=== PATIENT | female | born 1935 | race Caucasian/White ===

== ENCOUNTER 2024-03-12 10:34 | Emergency (ER) | payer MEDICARE, OTHER, SELFPAY ==
--- NOTE | 2024-03-12 10:40 | XRR_ITS ---
PROCEDURE INFORMATION: Exam: XR Chest Exam date and time: 03/12/2024 11:05 AM Age: 88 years old Clinical indication: Angina pectoris; Patient HX: Chest pain; Lt arm pain; SOB; Fatigue TECHNIQUE: Imaging protocol: Radiologic exam of the chest. Views: 1 view. COMPARISON: No relevant prior studies available. FINDINGS: Lungs: The lungs are somewhat hyperinflated, likely representing COPD. No evidence of focal consolidation to suggest pneumonia. Pleural spaces: Unremarkable. No pleural effusion. No pneumothorax. Heart/Mediastinum: Mildly enlarged heart. Bones/joints: Degenerative changes of the spine seen. XR/XR chest 1V portable [id number] IMPRESSION: No evidence of focal consolidation. COPD changes.
--- NOTE | 2024-03-12 10:40 | ECG_ITS ---
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 Measurements Intervals [place] Rate: 57 P: 76 CA: 212 QRS: 34 QRSD: 104 T: 70 QT: 451 QTc: 440 Interpretive Statements SINUS BRADYCARDIA WITH FIRST DEGREE AV BLOCK No previous ECG available for comparison Electronically Signed On 03-12-2024 20:50:50 CDT by Pretty Trent M.D. [id number]
[2024-03-12 10:42] VITALS: BP 190/99; PULSE 59; RESP 16; TEMP 36.7; O2SAT 96
--- NOTE | 2024-03-12 10:42 | ED_ITS ---
HPI - Extremity Problem 2 General: Chief complaint: Extremity Injury, Upper Stated complaint: LEFT ARM PAIN Time Seen by Provider: 03/12/24 10:35 History of Present Illness: 88-year-old female with a history of hyp ertension and peripheral vascular disease who presents the emergency room with left arm pain that started earlier this morning, probably a couple hours ago but has since resolved. Said pain was down her shoulder all the way down into her forearm. Was concerned this could be coronary artery disease. She does have peripheral vascular disease and has had stents in her groin she says. She had a cardiac cath a couple of years ago and states she had some plaques but nothing that needed intervened on at the time. No cough. No shortness of breath. No altered mental status. No focal motor deficits. No nausea or vomiting Review of Systems 2 Narrative: Constitutional symptoms: Negative except as documented in HPI. Skin symptoms: Negative except as documented in HPI. Eye symptoms: Negative except as documented in HPI. ENMT symptoms: Negative except as documented in HPI. Respiratory symptoms: Negative except as documented in HPI. Cardiovascular symptoms: Negative except as documented in HPI. Gastrointestinal symptoms: Negative except as documented in HPI. Genitourinary symptoms: Negative except as documented in HPI. Musculoskeletal symptoms: Negative except as documented in HPI. Neurologic symptoms: Negative except as documented in HPI. Psychiatric symptoms: Negative except as documented in HPI. Endocrine symptoms: Negative except as documented in HPI. Physical Exam 2 Narrative: EXAM NARRATIVE: General: Alert, no acute distress. Skin: Warm, dry. Head: Normocephalic, atraumatic. Neck: Supple, trachea midline. Eye: Extraocular movements are intact. Ears, nose, mouth and throat: mucosa moist. Cardiovascular: Regular, Normal peripheral perfusion. Respiratory: Lungs are clear to auscultation, respirations are non-labored, breath sounds are equal, Symmetrical chest wall expansion. Gastrointestinal: Soft, Nontender, Non distended, Normal bowel sounds. Musculoskeletal: Normal ROM, no deformity. Neurological: Alert and oriented, No focal neurological deficit observed. Psychiatric: Cooperative, appropriate mood & affect. Course 2 Vital Signs: Vital signs: Vital Signs Temperature 98.1 F 03/12/24 10:42 Pulse Rate 59 L 03/12/24 10:42 Respiratory Rate 16 03/12/24 10:42 Blood Pressure 190/99 03/12/24 10:42 Pulse Oximetry 96 03/12/24 10:42 Oxygen Delivery Me thod Room Air 03/12/24 10:42 MDM - Extremity (Nontraumatic) Medical Decision Making Differential diagnosis for patient with arm pain with equivalent to chest pain includes but is not limited to and based on the above HPI, review of systems and physical exam: Primary concern would be that she has atypical presentation of chest pain and has an acute coronary event. Workup: Lab work, chest X-ray and EKG ordered to evaluate, rule in and rule out above pathologies. Lab Review: Laboratory results were reviewed and interpreted by myself the emergency room physician. Lab work was fairly unremarkable. Initial troponin was 19. White count was 6. Hemoglobin was 10. BUN and creatinine were 13 and 0.8. EKG: Time 10:52 AM rate 57. Sinus bradycardia, No ST-T changes, no ectopy, normal DC & QRS intervals, This was reviewed and interpreted by myself the ER physician. Chest x-ray: No acute process. No infiltrate. No pneumothorax. cardiomegaly. This was reviewed and interpreted by myself the ER physician. I reviewed the patient's medical record. No previous records at this facility. Reexamination: At 1140 nursing called me to the patient's room. Patient's family had called out and said she had suddenly become unresponsive. I examined the patient and she had a left gaze. She would not move her right arm. Initially she would move her left arm slightly to command. She would try to speak with but is very dysarthric/aphasic. Code stroke was called. Patient was taken to CT. I evaluated the initial scan there was no blood. There was a meningioma in the frontal lobe. Family reports this is old. CTA was performed. CTA of the head and neck At 1228 V rad called with report. Report was that she had new distal M1 obstruction that was complete into the M2 branches. Some loss of wise-white matter in the left temporal and insular regions. Consultation: I called Dr. Torres with neurology immediately. He evaluated the patient. Recommended blood pressure control but not too aggressive. Systolic between 160 and 180 with a MAP of 90-100. I have ordered a Cardene drip. The patient has been bradycardic. NIH Stroke Scale/Score (NIHSS) from [email or web address] on 03/12/2024 All calculations should be rechecked by clinician prior to use RESULT SUMMARY: 17 points NIH Stroke Scale INPUTS: 1A: Level of consciousness ?> 2 = Requires repeated stimulation to arouse 1B: Ask month and age ?> 2 = Aphasic 1C: 'Blink eyes' & 'squeeze hands' ?> 2 = Performs 0 tasks 2: Horizontal extraocular movements ?> 2 = Forced gaze palsy: cannot be overcome 3: Visual garcia ?> 0 = No visual loss 4: Facial palsy ?> 1 = Minor paralysis (flat nasolabial fold, smile asymmetry) 5A: Left arm motor drift ?> 0 = No drift for 10 seconds 5B: Right arm motor drift ?> 4 = No movement 6A: Left leg motor drift ?> 0 = No drift for 5 seconds 6B: Right leg motor drift ?> 0 = No drift for 5 seconds 7: Limb Ataxia ?> 0 = No ataxia 8: Sensation ?> 0 = Normal; no sensory loss 9: Language/aphasia ?> 2 = Severe aphasia: fragmentary expression, inference needed, cannot identify materials 10: Dysarthria ?> 2 = Severe dysarthria: unintelligible slurring or out of proportion to dysphasia 11: Extinction/inattention ?> 0 = No abnormality 12:30 PM: Blood pressure was brought down to around 185 systolic. Tenecteplase was given weight-based. Lab Data 03/12/24 11:34 03/12/24 11:34 Radiology Impressions Chest X-Ray 03/12/24 10:40 IMPRESSION: No evidence of focal consolidation. COPD changes. Head CT 03/12/24 11:42 IMPRESSION: 1. No acute intracranial abnormality. 2. Calcified dural-based masses in the left frontal parafalcine and left lateral temporoparietal regions, likely representing meningiomas. Further evaluation with contrast enhanced brain MRI recommended. ASSESSMENT: ASPECTS ([place] Stroke Program Early CT Score) is 10. Head/Neck CTA 03/12/24 11:42 IMPRESSION: 1. Near-complete occlusion of the distal M1 and proximal M2 branches of the left middle cerebral artery. 2. Loss of wise-white matter differentiation in the left temporal lobe and insular regions, concerning for infarct. IMPRESSION: 1. No occlusion. 2. Moderate to severe stenosis at the origin of the right vertebral artery, which may be accentuated by motion artifact. 3. Ectatic ascending aorta. REFERENCES: NASCET CRITERIA. The degree of stenosis in the cervical segment of the internal carotid artery is based on NASCET criteria. Normal is no stenosis. Mild is less than 50% stenosis. Moderate is 50-69% stenosis. Severe is 70% to 99% stenosis. Total occlusion is no detectable patent lumen. ADDENDUM: 03/12/24 0416 THIS REPORT CONTAINS FINDINGS THAT MAY BE CRITICAL TO PATIENT CARE. The findings were verbally communicated via telephone conference with JESSICA NGUYEN at 12:24 PM CDT on 03/12/2024. The findings were acknowledged and understood. Laboratory Results WBC 6.08 10^3/uL (3.29-11.43) 03/12/24 11:34 RBC 3.40 10^6/uL (3.85-5.65) L 03/12/24 11:34 Hgb 10.10 g/dL (11.27-16.99) L 03/12/24 11:34 Hct 30.1 % (36-47) L 03/12/24 11:34 MCV 88.5 fl (85-98) 03/12/24 11:34 MCH 29.7 pg (27-33) 03/12/24 11:34 MCHC 33.6 g/dL (30-55) 03/12/24 11:34 RDW 12.4 % (12.1-15.1) 03/12/24 11:34 Plt Count 228 10^3/cmm (157-399) 03/12/24 11:34 MPV 9.3 fL (7.4-10.4) 03/12/24 11:34 Neut % (Auto) 63.7 % 03/12/24 11:34 Lymph % (Auto) 23.5 % 03/12/24 11:34 [place] % (Auto) 9.2 % 03/12/24 11:34 Eos % (Auto) 2.6 % 03/12/24 11:34 Baso % (Auto) 0.8 % 03/12/24 11:34 Neut # (Auto) 3.87 10^3/uL (1.8-7.7) 03/12/24 11:34 Lymph # (Auto) 1.4 10^3/uL (0.8-4.8) 03/12/24 11:34 [place] # (Auto) 0.6 10^3/uL (0.2-0.9) 03/12/24 11:34 Eos # (Auto) 0.2 10^3/uL (0.0-0.8) 03/12/24 11:34 Baso # (Auto) 0.1 10^3/uL (0.0-0.1) 03/12/24 11:34 Nucleated RBC % (auto) 0 % 03/12/24 11:34 Nucleated RBCs # 0.0 /100WBC 03/12/24 11:34 Sodium 131 mmol/L (136-145) L 03/12/24 11:34 Potassium 3.8 mmol/L (3.5-5.1) 03/12/24 11:34 Chloride 92 mmol/L (98-107) L 03/12/24 11:34 Carbon Dioxide 31 mmol/L (22-29) H 03/12/24 11:34 Anion Gap 11.8 (5-19) 03/12/24 11:34 BUN 13 mg/dL (8-23) 03/12/24 11:34 Creatinine 0.8 mg/dL (0.5-0.9) 03/12/24 11:34 GFR Calculation Not Reportable 03/12/24 11:34 Glucose 91 mg/dL (65-115) 03/12/24 11:34 POC Glucose 88 mg/dL (70-110) 03/12/24 11:58 Calculated Osmolality 272 mOsm/kg (285-295) L 03/12/24 11:34 Calcium 8.9 mg/dL (8.5-10.5) 03/12/24 11:34 Troponin T Baseline 14 ng/L (0-10) H 03/12/24 11:34 All radiology interpretation(s) finalized by discharge Other Data Assessment and plan: Acute M1 distribution cerebrovascular event. Right hemiplegia Right-sided neglect. Left-sided gaze. -Patient was initially brought to the emergency room with left arm pain with concern for a cardiac event. Recently taken off of her Plavix. Has history of peripheral vascular disease. -Patient is being transferred to tertiary care center for possible thrombectomy. -Tenecteplase was given. -Cardene drip for blood pressure. -Neurology consultation in the emergency room. See above. -Patient is being transferred to [facility]. Excepted by neurologist Dr. Bloom and by emergency room physician Dr. Gamboa -Patient is being transferred by air ambulance as this is very time sensitive and life-threatening - Discussed findings and plan with family. Answered any questions. - All laboratory values were reviewed and interpreted personally by myself, the ER physician - All imaging was reviewed and interpreted personally by myself, the ER physician. - Evaluation and treatment of this problem were appropriate in the emergency setting -I spent a total of >75 minutes of critical care time managing the patient, independent of any other practitioner. -The time involved in the performance of separately reportable procedures was not counted towards critical care time. Discharge Plan Discharge Patient Disposition: Xfer Short-Term Hosp Clinical Impression: Cerebrovascular event, Hemiplegia affecting right dominant side, Right-sided visual neglect Condition: Critical Coding Level of Care Code ED Supervisor Partial Denture Department for Anastasiya Graves
[2024-03-12 11:40] LABS: Basophils # 0.1 10^3/uL (0.0-0.1); Basophils % 0.8 %; Eosinophils # 0.2 10^3/uL (0.0-0.8); Eosinophils % 2.6 %; Hematocrit 30.1 % (36-47); Lymphocytes # 1.4 10^3/uL (0.8-4.8); Lymphocytes % 23.5 %; Mean Corpuscular HGB Conc 33.6 g/dL (30-55); Mean Corpuscular Hemoglobin 29.7 pg (27-33); Mean Corpuscular Volume 88.5 fl (85-98); Mean Platelet Volume 9.3 fL (7.4-10.4); Monocytes # 0.6 10^3/uL (0.2-0.9); Monocytes % 9.2 %; Neutrophils # 3.87 10^3/uL (1.8-7.7); Neutrophils % 63.7 %; Nucleated Red Blood Cells % 0 %; Platelet Count 228 10^3/cmm (157-399); Red Cell Distribution Width 12.4 % (12.1-15.1); White Blood Count 6.08 10^3/uL (3.29-11.43)
--- NOTE | 2024-03-12 11:42 | CTR_ITS ---
PROCEDURE INFORMATION: Exam: CTA Head With Contrast, Arteriography Exam date and time: 03/12/2024 11:50 AM Age: 88 years old Clinical indication: Cognitive deficit; Altered mental status; Additional info: Stroke TECHNIQUE: Imaging protocol: Computed tomographic angiography of the head with contrast. Exam focused on the arteries. 3D rendering (Not supervised by radiologist): MIP and/or 3D reconstructed images were created by the technologist. Radiation optimization: All CT scans at this facility use at least one of these dose optimization techniques: automated exposure control; mA and/or kV adjustment per patient size (includes targeted exams where dose is matched to clinical indication); or iterative reconstruction. Contrast material: OMNI 350; Contrast volume: 100 ml; Contrast route: INTRAVENOUS (IV); COMPARISON: CT head wo con* [id number] 03/12/2024 11:44 AM RADIATION DOSE METRICS: Total DLP (mGy-cm): 435.02 FINDINGS: ANTERIOR CIRCULATION: Right internal carotid artery: Intracranial segment is patent with no significant stenosis. No aneurysm. Right middle cerebral artery: No occlusion or significant stenosis. No aneurysm. Right anterior cerebral artery: No occlusion or significant stenosis. No aneurysm. Left internal carotid artery: Intracranial segment is patent with no significant stenosis. No aneurysm. Left middle cerebral artery: There is filling defect within the distal M1 segment and proximal M2 branches of the left middle cerebral artery, resulting in near complete occlusion. No aneurysm. Left anterior cerebral artery: No occlusion or significant stenosis. No aneurysm. POSTERIOR CIRCULATION: Right vertebral artery: No occlusion or significant stenosis. No aneurysm. Left vertebral artery: No occlusion or significant stenosis. No aneurysm. Basilar artery: No occlusion or significant stenosis. No aneurysm. Right posterior cerebral artery: Persistent circulation through the patent right posterior communicating artery. No occlusion or significant stenosis. No aneurysm. Left posterior cerebral artery: Persistent circulation through the patent left posterior communicating artery. No occlusion or significant stenosis. No aneurysm. Brain: There is loss of wise-white matter differentiation in the left temporal lobe and insular regions. Well-defined, calcified, dural-based lesions in the left frontal parasagittal region and left lateral frontotemporal region, likely representing meningiomas. No hemorrhage or midline shift. There are foci of decreased attenuation in the periventricular and subcortical white matter, likely representing chronic small vessel ischemic changes. Mild cerebral volume loss is present. No intra-axial or extra-axial fluid collection seen. Cerebral ventricles: No ventriculomegaly. Mastoid air cells: Visualized mastoid air cells are well aerated. Paranasal sinuses: Visualized sinuses are unremarkable. No fluid levels. Bones/joints: Unremarkable. No acute fracture. Soft tissues: Unremarkable. PROCEDURE INFORMATION: Exam: CTA Neck With Contrast Exam date and time: 03/12/2024 11:50 AM Age: 88 years old Clinical indication: Cognitive deficit; Altered mental status; Additional info: Stroke TECHNIQUE: Imaging protocol: Computed tomographic angiography of the neck with contrast. Exam focused on the cervical segments of the vasculature. 3D rendering (Not supervised by radiologist): MIP and/or 3D reconstructed images were created by the technologist. Radiation optimization: All CT scans at this facility use at least one of these dose optimization techniques: automated exposure control; mA and/or kV adjustment per patient size (includes targeted exams where dose is matched to clinical indication); or iterative reconstruction. Contrast material: OMNI 350; Contrast volume: 100 ml; Contrast route: INTRAVENOUS (IV); COMPARISON: CT head wo con* [id number] 03/12/2024 11:44 AM RADIATION DOSE METRICS: Total DLP (mGy-cm): 435.02 FINDINGS: Right common carotid artery: No stenosis. No dissection or occlusion. Right internal carotid artery: No stenosis of the extracranial segment. No dissection or occlusion. Right external carotid artery: No occlusion or stenosis of the origin. Left common carotid artery: No stenosis. No dissection or occlusion. Left internal carotid artery: No stenosis of the extracranial segment. No dissection or occlusion. Left external carotid artery: No occlusion or stenosis of the origin. Right vertebral artery: There is moderate to severe stenosis at the origin of the right vertebral artery, which may be accentuated by motion artifact. No dissection or occlusion. Left vertebral artery: No stenosis. No dissection or occlusion. Aorta: Ectatic partially imaged ascending aorta measuring up to 4 cm in diameter. Soft tissues: Normal. No significant soft tissue swelling. Bones/joints: No acute fracture. Degenerative changes of the spine seen. CT/CT angio headneck* [id number] IMPRESSION: 1. Near-complete occlusion of the distal M1 and proximal M2 branches of the left middle cerebral artery. 2. Loss of wise-white matter differentiation in the left temporal lobe and insular regions, concerning for infarct. IMPRESSION: 1. No occlusion. 2. Moderate to severe stenosis at the origin of the right vertebral artery, which may be accentuated by motion artifact. 3. Ectatic ascending aorta. REFERENCES: NASCET CRITERIA. The degree of stenosis in the cervical segment of the internal carotid artery is based on NASCET criteria. Normal is no stenosis. Mild is less than 50% stenosis. Moderate is 50-69% stenosis. Severe is 70% to 99% stenosis. Total occlusion is no detectable patent lumen.
--- NOTE | 2024-03-12 11:42 | CTR_ITS ---
PROCEDURE INFORMATION: Exam: CT Head Without Contrast Exam date and time: 03/12/2024 11:44 AM Age: 88 years old Clinical indication: Stroke-like symptoms; Altered mental status/memory loss; Additional info: New onset stroke TECHNIQUE: Imaging protocol: Computed tomography of the head without contrast. Radiation optimization: All CT scans at this facility use at least one of these dose optimization techniques: automated exposure control; mA and/or kV adjustment per patient size (includes targeted exams where dose is matched to clinical indication); or iterative reconstruction. Other technique: STROKE PROTOCOL was implemented. COMPARISON: No relevant prior studies available. RADIATION DOSE METRICS: Total DLP (mGy-cm): 875.6 FINDINGS: Brain: In the left frontal parafalcine region there is an oval, calcified, dural-based mass measuring approximately 2.4 x 2.2 x 1.7 cm. Slight mass effect over the adjacent sulci noted. No significant surrounding edema identified. In the left lateral temporoparietal region, there is a dural-based calcified lesion measuring approximately 0.4 x 0.5 x 0.3 cm. No significant mass effect. No associated edema. No hemorrhage or midline shift. No acute, major vascular distribution infarction identified. There are foci of decreased attenuation in the periventricular and subcortical white matter, likely representing chronic small vessel ischemic changes. Mild cerebral volume loss is present. No intra-axial or extra-axial fluid collection seen. Cerebral ventricles: No ventriculomegaly. Paranasal sinuses: Visualized sinuses are unremarkable. No fluid levels. Mastoid air cells: Visualized mastoid air cells are well aerated. Bones/joints: Unremarkable. No acute fracture. Soft tissues: Unremarkable. CT/CT head wo con* [id number] IMPRESSION: 1. No acute intracranial abnormality. 2. Calcified dural-based masses in the left frontal parafalcine and left lateral temporoparietal regions, likely representing meningiomas. Further evaluation with contrast enhanced brain MRI recommended. ASSESSMENT: ASPECTS ([place] Stroke Program Early CT Score) is 10.
[2024-03-12] MEDS: iohexol 350 mg/mL 500 mL Btl (per mL) IV (11:50)
[2024-03-12 11:57] LABS: Anion Gap 11.8 (5-19); Blood Urea Nitrogen 13 mg/dL (8-23); Calcium 8.9 mg/dL (8.5-10.5); Carbon Dioxide 31 mmol/L (22-29); Chloride 92 mmol/L (98-107); Glucose 91 mg/dL (65-115); Osmolality Calculated 272 mOsm/kg (285-295); Potassium 3.8 mmol/L (3.5-5.1); Sodium 131 mmol/L (136-145); Troponin(5th) Baseline 14 ng/L (0-10)
[2024-03-12 12:11] VITALS: BP 193/81; PULSE 64; RESP 17; O2SAT 96
[2024-03-12 12:15] LABS: Glucose Point of Care 88 mg/dL (70-110)
[2024-03-12] MEDS: nicardipine 20 MG/200 ML PREMIX 50 MG IV (12:26)
[2024-03-12 12:30] VITALS: BP 201/90; PULSE 63; RESP 17; O2SAT 96
--- NOTE | 2024-03-12 12:34 | PC.PHAR ---
pt unable to verify medications-pts daughter brought in med list and states it should be up to date-the list brought in had estradiol 1mg takes one half tab (0.5mg) daily ext shows last filled 1mg daily filled 03/09/24 90d/s-pts list also had terazosin 2mg daily ext shows last filled 5mg capsule 5mg hs ext shows filled 02/18/24 90d/s-pts daughter states the pts plavix 75mg daily was dced about 2 months ago ext shows last filled 12/21/23 30d/s-pts daughter also states the pts amlodipine 5mg daily was dced about 2 weeks ext shows last filled 02/24/24 30d/s-pts daughter states the pt gets a vitamin b12 injection monthly ext doesnt show when last filled-pts daughter states the pt took am meds today but doesnt know which are am meds-
[2024-03-12] MEDS: tenecteplase 50mg Kit (STROKE) 19 MG IVP (12:38)
--- NOTE | 2024-03-12 12:45 | ECG_ITS ---
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 Measurements Intervals [place] Rate: 59 P: 65 AR: 200 QRS: 44 QRSD: 94 T: 70 QT: 468 QTc: 464 Interpretive Statements SINUS BRADYCARDIA Compared to ECG 03/12/2024 10:52:05 First degree AV block no longer present Electronically Signed On 03-12-2024 21:00:51 CDT by Pretty Trent M.D. [email or web address] [email or web address] hospital at gulfportAzulStarcleveland clinic ak[facility] general lodi hospitalThe Electrospin[employer]/store/[id number]
[2024-03-12] MEDS: sodium chloride 0.9% 1,000 ML 75 ML IV (12:48)
[2024-03-12 13:00] VITALS: BP 154/59; PULSE 60; RESP 16; O2SAT 95
[2024-03-12 13:04] LABS: INR 0.99 (0.8-1.2)
--- NOTE | 2024-03-12 13:13 | P.CONIM_ITS ---
Providers/Reason For Consult 2 Consulting Physician/Specialty*: Jadiel Torres MD neurology and epilepsy Reason for Consult*: Code stroke/acute care emergency department room #10 History of Present Illness History of Present Illness Tiesha James is a 88 year old female with a history of peripheral artery disease status post stent placements and labile hypertension treated with metoprolol amlodipine and as needed clonidine. According to the patient's daughter, on 02/28/2024 amlodipine (Norvasc) was discontinued secondary to patient experiencing low blood pressure and metoprolol was increased. On 03/09/2023 the patient's daughter contacted her mother. And according to the patient's daughter her mother was experiencing slurred speech. The patient's mother stated she had just woken up from sleep. The patient's daughter contacted the on-call nurse for the family physician and patient was scheduled to be evaluated by the family physician on 03/10/2024. According to the patient's daughter, the patient was evaluated by the nurse practitioner and the patient was scheduled for head CT and head MRI to evaluate the brain lesion suggestive of a meningioma since the patient was also reporting episodic dizziness and balance difficulty. On 03/12/2024 the patient was reported to experience left arm pain around 9 AM and the patient was brought to [facility] emergency room since [facility] was reported to be on diversion. The patient arrived at [facility] emergency room at 10:30 AM and reported improvement in her left arm pain. At approximately 11:35 AM on 03/12/2024 the daughter notified the patient's nurse that her mother experienced acute onset of decreased speech, altered mental status and deviation of her eyes to the left associated with right arm and right leg paralysis. Code stroke was initiated at 11:42 AM. Stat noncontrast head CT was obtained and revealed no acute findings. There was report of a calcified dural-based masses in the left frontal parafalcine and left lateral temporoparietal regions, likely representing meningiomas. and further evaluation with contrast enhanced brain MRI was recommended. Glucose 88. CT angiogram of the head and neck was obtained prior to my arrival and results were pending at the time of my neurological assessment. NIH score =17 secondary to patient unable to answer both questions, left gaze preference with inability of the patient to look to the right, right lower facial weakness, right arm and right leg paralysis, and inability to speak. Intravenous tenecteplase was ordered but the there was delay and the infusion secondary to patient experiencing elevated blood pressure of 193/81. Patient was started on intravenous nicardipine at 5 mg with improvement in her blood pressure within the appropriate ranges for intravenous tenecteplase. Consent for IV tenecteplase was obtained from the patient's daughter and risk versus benefits were discussed with the daughter who voiced understanding regarding intravenous tenecteplase. Intravenous tenecteplase 19 mg was given IV push at 12:38 AM. Nicardipine was discontinued and serial blood pressures were obtained every 5 minutes. Blood pressure was again elevated with systolic blood pressure 192 and therefore nicardipine drip was restarted at 2.5 mg. Repeat serial blood pressures were continued and 5 minutes later revealed elevated systolic blood pressure 192. Therefore nicardipine was restarted at 2.5 mg. Repeat serial blood pressure 5 minutes later still revealed elevated systolic blood pressure of 190s and therefore nicardipine drip was increased back to 5 mg. Repeat blood pressure revealed 163/66 therefore nicardipine drip was decreased back to 2.5 mg and repeat serial blood pressures every 5 minutes revealed blood pressures in the 155/66 range with heart rate of 61 with mean arterial blood pressure in the 90 to 92. The radiologist contacted the attending ER physician and reported the CT angiogram performed on 03/12/2024 revealed Near-complete occlusion of the distal M1 and proximal M2 branches of the left middle cerebral artery. Loss of wise-white matter differentiation in the left temporal lobe and insular regions, concerning for infarct. The ER physician contacted [facility] to transfer patient for evaluation for thrombectomy. The patient was also started on IV normal saline at 75 cc/hr and head of bed was elevated to 30 degrees to minimize any potential cerebral swelling. CBC and comprehensive metabolic panel revealed normal WBC, RBC 3.4. H&H 10 and 30 respectively. Sodium 131 with chloride of 92 and troponin level slightly elevated at 14. The other labs were unrevealing. The patient's daughter stated that the patient underwent 2D echocardiograms in the past but no recent 2D echocardiograms. The patient was med flighted to [facility]. Drug allergies: Celexa type reaction unknown Sulfonamide antibiotics type reaction unknown Valacyclovir type reaction unknown Current home medications: Metoprolol 50 mg p.o. twice daily Hydrochlorothiazide 25 mg p.o. daily Aspirin 81 mg p.o. daily Lorazepam 1 mg p.o. nightly Primidone 50 mg p.o. daily for essential tremor Terazosin 2 mg p.o. daily Estradiol 1 mg tablet 1/2 tablet p.o. daily Ibuprofen 600 mg p.o. twice daily Clonidine 0.1 mg as needed elevated blood pressure (systolic greater than 185 or diastolic greater than 105) Neurontin 300 mg p.o. twice daily for shingles Cetirizine 10 mg p.o. daily Vitamin D2 50,000 international units p.o. weekly Past medical history: Peripheral artery disease status post lower extremity stent placements Status post hysterectomy 1974 Gallbladder surgery 1999 Status post cataract surgery 2007 Brain lesion suggestive of meningioma Vertigo Past medications: Plavix (prescribed following peripheral artery disease stent placements) Norvasc Celexa Valacyclovir Sulfonamide antibiotic Habits: None Review of Systems 2 General: Reports: ROS unobtainable due to medical condition Medications/Allergies Home Medications Medication Instructions Recorded Confirmed Last Taken Type aspirin 81 mg tablet,delayed 81 mg PO DAILY 03/12/24 03/12/24 03/12/24 History release cetirizine 10 mg tablet 10 mg PO DAILY 03/12/24 03/12/24 Unknown History clonidine HCl 0.1 mg tablet 0.1 mg PO .FOR BP OVER 185 03/12/24 03/12/24 Unknown History cyanocobalamin (vitamin B-12) 1,000 mcg IM Q30D 03/12/24 03/12/24 2 Weeks Ago History 1,000 mcg/mL injection solution ~02/27/24 ergocalciferol (vitamin D2) 1,250 50,000 unit PO Q7D 03/12/24 03/12/24 Unknown History mcg (50,000 unit) capsule (Vitamin D2) estradiol 1 mg tablet 0.5 mg PO DAILY 03/12/24 03/12/24 Unknown History gabapentin 300 mg capsule 300 mg PO BID 03/12/24 03/12/24 Unknown History hydrochlorothiazide 25 mg tablet 25 mg PO QAM 03/12/24 03/12/24 Unknown History ibuprofen 600 mg tablet 600 mg PO BID PRN Pain 03/12/24 03/12/24 Unknown History lorazepam 1 mg tablet 1 mg PO BEDTIME 03/12/24 03/12/24 Unknown History metoprolol tartrate 50 mg tablet 50 mg PO BID 03/12/24 03/12/24 Unknown History primidone 50 mg tablet 50 mg PO DAILY 03/12/24 03/12/24 Unknown History terazosin 5 mg capsule 5 mg PO DAILY 03/12/24 03/12/24 Unknown History Allergies Allergy/AdvReac Type Severity Reaction Status Date / Time citalopram [From Celexa] Allergy Unknown Verified 03/12/24 12:26 Sulfa (Sulfonamide Allergy Unknown Verified 03/12/24 12:26 Antibiotics) valacyclovir Allergy Unknown Verified 03/12/24 12:26 Current Medications Generic Name Dose Route Start Last Admin Trade Name Freq PRN Reason Stop Dose Admin Nicardipine/Sodium Chloride 20 mg in 200 mls @ 0 mls/hr 03/12/24 12:30 03/12/24 12:51 Cardene IV 5 mg/hr .Q0M DANETTE 50 mls/hr Titration Protocol Per Protocol Sodium Chloride 1,000 mls @ 75 mls/hr 03/12/24 12:45 03/12/24 12:48 Sodium Chloride 0.9% IV 75 mls/hr .[id number] DANETTE Administration Vitals/I&O/Wt Last Vital Signs Temp 98.1 F 03/12/24 10:42 Pulse 59 L 03/12/24 10:42 Resp 16 03/12/24 10:42 BP 190/99 03/12/24 10:42 Pulse Ox 96 03/12/24 10:42 O2 Del Method Room Air 03/12/24 10:42 03/11/24 03/12/24 03/12/24 22:59 06:59 14:59 Intake Total 17.083 / 17.083 Balance 17.083 / 17.083 Weight last 48 hrs Weight 166 lb Physical Exam 2 Narrative: Blood pressure stable with MAP between 90 to 92 (recommended patient continue at higher MAP blood pressure secondary to left MCA thrombosis and stroke involving the left MCA distribution to assist with brain perfusion) The patient is awake but intermittently sleepy but arousable to verbal stimuli. Patient nonverbal. Patient has left gaze preference with right-sided paralysis. Pupils 4 mm reactive to light and accommodation. Visual garcia were difficult to assess secondary to patient's neurological condition and being nonverbal. The patient does follow commands. Head normocephalic. Neck supple. Cranial nerves II through XII revealed right lower facial weakness. Extraocular movements revealed left gaze preference with inability of the patient to look to the right. Motor testing right upper and right lower extremity paralysis. Patient moves the left arm and left leg to tactile stimuli. Deep tendon reflexes revealed extensor plantar response on the right. There was no clonus. Sensory examination was intact to touch. Throat clear. Lungs clear. Heart regular rhythm and rate at times with sinus bradycardia in the upper 50s. Abdomen benign. Extremities were negative for cyanosis or edema. Patient has history of lower extremity stent placements in the femoral region. Data 03/12/24 11:34 03/12/24 11:34 A&P Assessment and plan (1) Left acute arterial ischemic stroke, MCA (middle cerebral artery): Impression: 1. 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 angiogram of the head and neck 03/12/2024 secondary to Near- complete occlusion of the distal M1 and proximal M2 branches of the left middle cerebral artery. Loss of wise-white matter differentiation in the left temporal lobe and insular regions, concerning for infarct. 3. Abnormal noncontrast head CT 03/12/2024 secondary to calcified dural-based masses in the left frontal parafalcine and left lateral temporoparietal regions, likely representing meningiomas. Further evaluation with contrast enhanced brain MRI recommended. 4. Intravenous tenecteplase administered 03/12/2024 at 12:38 PM 5. History of peripheral artery disease status post stent placement in the lower extremities 6. Labile hypertension Plan: 1. Agree with transfer to [facility] to have patient evaluated for left MCA thrombectomy 2. Recommend repeat 2D echocardiogram to assess for embolic source for strokes 3. Follow NIH stroke protocol regarding lipid-lowering agents and antiplatelets versus anticoagulation (2) Thrombolytic therapy administered within 2 hours of onset of symptoms: Consult Attestations 2 Medical Necessity Statement: Patient evaluated by neurology for acute care/code stroke and intravenous tenecteplase 03/12/2024. Coding Level of Care Code 53450 Diagnoses Left acute arterial ischemic stroke, MCA (middle cerebral artery) I63.512 Thrombolytic therapy administered within 2 hours of onset of symptoms
[2024-03-12 13:30] VITALS: BP 158/68; PULSE 60; RESP 15; O2SAT 97
--- NOTE | 2024-03-12 13:38 | PC.NURSE ---
Stroke Alert when pt arrived to ED she was AO and talking, she was able to answer all assessment questions on her own. pts daughter alerted staff that mother was acting different after stating that her 'head felt numb', this RN and Marielena RN who was charge went to check on pt in room 9. pt was gazing to the left, unable to move right arm and leg, and was not verbally responding. DR. Hardy was notified and arrived to assess the pt. Code Stroke was called at 1140 and pt was taken straight to CT by this RN and anna Mott. BG was checked while in CT and resulted at 88. pt was taken to room [address] and a second IV started. Dr. Torres arrived to assess pt and determined that her NIH score was 17, and after CT was read Dr. Hardy ordered TnKase and Nicardipene d/t pts blood pressure being too high. once pts bp was under 190, the TnKase was administered at 1238. pt is in stable condition for transfer at this time and report has been called to [facility].
[2024-03-12 14:18] VITALS: BP 175/73; PULSE 60; RESP 15; O2SAT 99
[2024-03-12 14:29] LABS: Troponin 5 2HR 14.49 ng/L (0-10); Troponin 5 2HR Delta 0.49 ABS# (0-10)
[2024-03-12 14:30] LABS: Blood Urea Nitrogen 13 mg/dL (8-23); Calcium 8.7 mg/dL (8.5-10.5); Carbon Dioxide 26 mmol/L (22-29); Chloride 92 mmol/L (98-107); Glucose 83 mg/dL (65-115); Osmolality Calculated 267 mOsm/kg (285-295); Sodium 129 mmol/L (136-145)
[2024-03-12 14:50] LABS: Anion Gap 15.1 (5-19); Potassium 4.1 mmol/L (3.5-5.1)
== END 2024-03-12 14:25 | disposition short-term general hospital (02) ==
PROVIDERS: Emergency Provider Emergency Medicine
DX: I63.9 Cerebral infarction, unspecified (principal); G81.91 Hemiplegia, unspecified affecting right dominant side; R41.4 Neurologic neglect syndrome; I10 Essential (primary) hypertension; R00.1 Bradycardia, unspecified
CPT/HCPCS: 36415; 36416; 70450; 70496; 70498; 71045; 80048; 82962; 84484; 85025; 85610; 93005; 96365; 96375; 99291; 99292; J3101; J7030; Q9967